=== PATIENT | female | born 1980 | race Caucasian/White ===

== ENCOUNTER 2023-08-16 10:03 | Emergency (ER) | payer OTHER, SELFPAY ==
[2023-08-16 10:12] VITALS: BP 123/84; PULSE 89; RESP 16; TEMP 37.2; O2SAT 98
--- NOTE | 2023-08-16 11:08 | ED.URI ---
HPI - URI/Sore Throat General Chief Complaint: Upper Respiratory Infection Stated Complaint: Cough/Chest Thightness/Shortness of Breath Time Seen by Provider: 08/16/23 11:00 Source: patient and RN notes reviewed Mode of arrival: ambulatory Limitations: no limitations History of Present Illness HPI Narrative: 43-year-old female presents concern for 6 day history of cough, general malaise, body aches, chills, headache. Reports cough worsened over the last 2 days. Reports that is not productive. She reports she has been taking Mucinex max and Tylenol ibuprofen without relief. MD elicited complaint: fever and cough Related Data Allergies Allergy/AdvReac Type Severity Reaction Status Date / Time No Known Allergies Allergy Verified 08/16/23 10:07 Review of Systems Review of Systems: CONSTITUTIONAL: Reports malaise, chills, fever. EYES: Denies visual changes, redness, or discharge. ENT: Reports rhinorrhea, congestion CARDIOVASCULAR: Denies chest pain, palpitations, or edema. RESPIRATORY: Reports cough, exertional dyspnea. GASTROINTESTINAL: Denies abdominal pain, nausea, vomiting, diarrhea SKIN: Denies rash or itching. MUSCULOSKELETAL: Reports myalgia. NEUROLOGIC: Reports headache. All systems reviewed & are unremarkable except as noted in HPI and below PMFSH Comments At time of signature, agree with nursing past medical, surgical, social and family history. There is no relevant family history pertinent to the presenting complaint Exam Narrative: GENERAL: Nontoxic-appearing, well-nourished, and in no acute distress. HEAD: Normocephalic EYES: PERRLA, conjunctivae clear ENT: Nares clear. Mucous membranes moist. TM pearly chaudhary with dull light reflex bilaterally; no tragal tenderness. Oropharynx not erythematous without lesions. Tonsils not enlarged and without exudate, no drooling, no hoarseness, no trismus, uvula midline. NECK: Supple. No lymphadenopathy CHEST: Scattered expiratory wheeze, otherwise clear to auscultation, breath sounds equal. No rhonchi, rales, or stridor. No respiratory distress, speaks in full sentences. HEART: Regular rate and rhythm. No murmur heard. SKIN: Warm, dry, no rash. NEURO: Alert and oriented x3. PSYCH: Normal mood and affect Course Course Emergency Course: Patient is aware of diagnosis, understands and agrees to treatment plan. Anticipatory guidance given. Patient agrees to follow-up as directed and is aware of reasons to seek care at the emergency department. Portions of this record may have been created with voice recognition software Level of Care: Express Care Visit Vital Signs Vital signs: Vital Signs Temperature 99 F 08/16/23 10:12 Pulse Rate 89 08/16/23 10:12 Respiratory Rate 16 08/16/23 10:12 Blood Pressure 123/84 08/16/23 10:12 Pulse Oximetry 98 08/16/23 10:12 Oxygen Delivery Room Air 08/16/23 10:12 Temperature 99 F 08/16/23 10:12 Pulse Rate 89 08/16/23 10:12 Respiratory Rate 16 08/16/23 10:12 Blood Pressure 123/84 08/16/23 10:12 Pulse Oximetry 98 08/16/23 10:12 Oxygen Delivery Room Air 08/16/23 10:12 Reviewed. MDM - URI/Sore Throat MDM Narrative Medical decision making narrative: Differential diagnosis considered: Hassan virus, strep pharyngitis, allergic rhinitis, upper respiratory tract infection, sinusitis, rhinosinusitis, nasopharyngitis. viral pharyngitis, otitis media, otitis externa, pneumonia, bronchitis, viral cough syndrome, viral syndrome, and influenza. Exam findings show no acute concerns or changes; patient is non-toxic appearing and is in no distress. Patient is appropriate for outpatient treatment and follow-up. Lab Data Attestation: I reviewed the patient's lab results. Labs: Lab Results 08/16/23 Range/Units 10:22 POC SARS CoV-2 Ag Negative (Negative) Influenza A Screen Positive Reference Range: Negative Influenza B
== END 2023-08-16 11:12 | disposition home or self-care (01) ==
PROVIDERS: Emergency Provider Nurse Practitioner
DX: J10.1 Influenza due to other identified influenza virus with other respiratory manifestations (principal); Z20.822 Contact with and (suspected) exposure to COVID-19
CPT/HCPCS: 87426; 87804; 99213; G0463